=== PATIENT | male | born 1965 | race Caucasian/White ===

== ENCOUNTER 2021-12-12 07:11 | Day surgery (SDC) | payer BC ==
[2021-12-07 09:56] VITALS: BMI 30.1
[2021-12-12] MEDS ORDERED: CEFAZOLIN 2 GM in DEXTROSE 5%-WATER - 50 ML IVPB ONE (07:35)
[2021-12-12] MEDS ORDERED: CELECOXIB 200 MG CAPSULE PO ONE (07:35)
[2021-12-12] MEDS ORDERED: TRANEXAMIC ACID 1000 MG/10 ML VIAL IVPUSH ONE (07:35)
[2021-12-12] MEDS ORDERED: VANCOMYCIN 1,000 MG VIAL (RESTRICTED TO ID ONLY) ONE (08:06)
[2021-12-12] MEDS ORDERED: ceFAZolin SODIUM 1 GM VIAL ONE ×4 (08:07→23:57)
[2021-12-12] MEDS ORDERED: PROPOFOL 20 ML ONE ×3 (08:10)
[2021-12-12] MEDS ORDERED: BUPIVACAINE HCL 50 ML ONE (08:16)
[2021-12-12] MEDS ORDERED: MIDAZOLAM HCL 2 MG/2 ML SINGLE DOSE VIAL ONE ×3 (08:50→09:41)
[2021-12-12] MEDS ORDERED: BUPIVACAINE HCL/PF 0.5% (5 MG/ML) 30 ML VIAL IJ ONE (08:50)
[2021-12-12] MEDS ORDERED: ONDANSETRON 4 MG/2 ML VIAL IVPUSH PRN ×2 (09:43→11:17)
[2021-12-12] MEDS ORDERED: MAG HYDROX/AL HYDROX/SIMETH 30 ML UNIT-DOSE CUP PO PRN (09:43)
[2021-12-12] MEDS ORDERED: LACTATED RINGERS SOLUTION 1,000 ML IV SCH (09:45)
[2021-12-12] MEDS ORDERED: TRANEXAMIC ACID 1000 MG/10 ML VIAL ONE (10:46)
[2021-12-12] MEDS ORDERED: DEXAMETHASONE SOD PHOSPHATE 4 MG/1 ML VIAL ONE (10:46)
[2021-12-12] MEDS ORDERED: KETOROLAC TROMETHAMINE 30 MG/1 ML VIAL ONE (10:46)
[2021-12-12] MEDS ORDERED: PHENYLEPHRINE HCL 10 MG/1 ML SINGLE DOSE VIAL ONE (10:46)
[2021-12-12] MEDS ORDERED: oxyCODONE HCL 5 MG TABLET PO PRN (11:17)
[2021-12-12] MEDS ORDERED: ACETAMINOPHEN 1000 MG/100 ML BAG IVPB ONE (11:17)
[2021-12-12] MEDS ORDERED: BSS (NA/CA/MG/K) BALANCED SALT SOLUTION OPHTH SOLN 15 ML BOTTLE ONE (12:03)
[2021-12-12] MEDS: LISINOPRIL 20 MG TABLET PO SCH ×2 (12:56→22:01)
[2021-12-12] MEDS: MULTIVITAMINS (DAILY MVI) TABLET (FP) PO SCH (12:56)
[2021-12-12] MEDS: PANTOPRAZOLE 40 MG TABLET PO SCH (12:56)
[2021-12-12] MEDS: SENNOSIDES/DOCUSATE COMBO (SENNA PLUS) TABLET (UD) PO SCH ×2 (12:56→22:01)
[2021-12-12] MEDS: amLODIPine BESYLATE 5 MG TABLET (FP) PO SCH (12:56)
[2021-12-12] MEDS: KETOROLAC TROMETHAMINE 30 MG/1 ML VIAL IVPUSH SCH (12:57)
[2021-12-12] MEDS: LACTATED RINGERS SOLUTION 1,000 ML IV SCH (12:57)
[2021-12-12] MEDS ORDERED: DEXTROSE 5%-WATER - 50 ML IVPB ONE ×2 (18:32→23:57)
[2021-12-12] MEDS: CEFAZOLIN 2 GM in DEXTROSE 5%-WATER - 50 ML IVPB SCH (18:37)
[2021-12-12] MEDS: metFORMIN HCL 500 MG TABLET (FP) PO SCH (18:38)
[2021-12-12] MEDS: INSULIN SLIDING SCALE (NOVOLOG) 1 VIAL SQ SCH (22:02)
[2021-12-12] MEDS: ATORVASTATIN CA 10 MG TABLET (FP) PO SCH (22:02)
[2021-12-12] MEDS: oxyCODONE HCL 10 MG SUSTAINED ACTING TABLET PO SCH (22:06)
[2021-12-13] MEDS: CEFAZOLIN 2 GM in DEXTROSE 5%-WATER - 50 ML IVPB SCH (01:34)
[2021-12-13] MEDS: oxyCODONE HCL 5 MG TABLET PO PRN ×2 (04:54→19:49)
[2021-12-13] MEDS: metFORMIN HCL 500 MG TABLET (FP) PO SCH ×2 (07:28→18:57)
[2021-12-13] MEDS: INSULIN SLIDING SCALE (NOVOLOG) 1 VIAL SQ SCH ×4 (07:28→21:32)
[2021-12-13] MEDS: KETOROLAC TROMETHAMINE 30 MG/1 ML VIAL IVPUSH SCH (08:16)
[2021-12-13 08:31] LABS: HEMATOCRIT 36.3 % (35.4-49); HEMOGLOBIN 12.6 GM/dL (11.7-16.9); MCH 27.6 pg (25.7-33.7); MCHC 34.7 g/dl (32.0-35.9); MEAN CELL VOLUME 79.5 fl (80-96); MEAN PLT VOLUME 9.3 fl (7.5-11.1); PLATELET COUNT 173 10^3/uL (134-434); RBC 4.56 M/mm3 (4.00-5.60); RDW 13.6 % (11.9-15.9); WHITE BLOOD COUNT 9.6 K/mm3 (4.0-10.0)
[2021-12-13] MEDS: ASPIRIN 325 MG TABLET PO SCH (11:34)
[2021-12-13] MEDS: amLODIPine BESYLATE 5 MG TABLET (FP) PO SCH (11:34)
[2021-12-13] MEDS: oxyCODONE HCL 10 MG SUSTAINED ACTING TABLET PO SCH ×2 (11:34→21:31)
[2021-12-13] MEDS: LISINOPRIL 20 MG TABLET PO SCH ×2 (11:34→21:32)
[2021-12-13] MEDS: MULTIVITAMINS (DAILY MVI) TABLET (FP) PO SCH (11:35)
[2021-12-13] MEDS: PANTOPRAZOLE 40 MG TABLET PO SCH (11:35)
[2021-12-13] MEDS: SENNOSIDES/DOCUSATE COMBO (SENNA PLUS) TABLET (UD) PO SCH ×3 (11:35→22:00)
[2021-12-13] MEDS: ATORVASTATIN CA 10 MG TABLET (FP) PO SCH (21:32)
[2021-12-14] MEDS: oxyCODONE HCL 5 MG TABLET PO PRN ×2 (02:55→08:21)
[2021-12-14] MEDS: INSULIN SLIDING SCALE (NOVOLOG) 1 VIAL SQ SCH ×2 (07:10→11:21)
[2021-12-14] MEDS: metFORMIN HCL 500 MG TABLET (FP) PO SCH (07:10)
[2021-12-14] MEDS: LACTATED RINGERS SOLUTION 1,000 ML IV SCH ×2 (07:39→11:28)
[2021-12-14] MEDS: ASPIRIN 325 MG TABLET PO SCH (08:09)
[2021-12-14 09:06] VITALS: BP 140/70; PULSE 84; TEMP 98.6
[2021-12-14] MEDS: SENNOSIDES/DOCUSATE COMBO (SENNA PLUS) TABLET (UD) PO SCH (09:10)
[2021-12-14] MEDS: PANTOPRAZOLE 40 MG TABLET PO SCH (09:10)
[2021-12-14] MEDS: MULTIVITAMINS (DAILY MVI) TABLET (FP) PO SCH (09:10)
[2021-12-14] MEDS: LISINOPRIL 20 MG TABLET PO SCH (09:10)
[2021-12-14] MEDS: amLODIPine BESYLATE 5 MG TABLET (FP) PO SCH (09:11)
[2021-12-14] MEDS: oxyCODONE HCL 10 MG SUSTAINED ACTING TABLET PO SCH (09:11)
[2021-12-14 09:29] LABS: HEMATOCRIT 35.2 % (35.4-49); HEMOGLOBIN 12.4 GM/dL (11.7-16.9); MCH 28.1 pg (25.7-33.7); MCHC 35.3 g/dl (32.0-35.9); MEAN CELL VOLUME 79.6 fl (80-96); MEAN PLT VOLUME 9.3 fl (7.5-11.1); PLATELET COUNT 170 10^3/uL (134-434); RBC 4.42 M/mm3 (4.00-5.60); RDW 13.4 % (11.9-15.9); WHITE BLOOD COUNT 9.7 K/mm3 (4.0-10.0)
== END 2021-12-14 14:16 | disposition home health service (06) ==
LOC: FASU 07:11 → FM/S 12:17 → FASU 12-14 14:16
PROVIDERS: ATTEND Orthopaedic Surgery
PROC: 8E0YXBZ Computer Assisted Procedure of Lower Extremity (ICD-10-PCS; 2021-12-12)
PROC: 8E0W0CZ Robotic Assisted Procedure of Trunk Region, Open Approach (ICD-10-PCS; 2021-12-12)
PROC: 0SRB0J9 Replacement of Left Hip Joint with Synthetic Substitute, Cemented, Open Approach (ICD-10-PCS; principal; 2021-12-12 09:53)
DX: E11.9 Type 2 diabetes mellitus without complications (principal); E66.09 Other obesity due to excess calories; F17.210 Nicotine dependence, cigarettes, uncomplicated; Z68.30 Body mass index [BMI] 30.0-30.9, adult; Z79.84 Long term (current) use of oral hypoglycemic drugs
CPT/HCPCS: 20985; 27130; C1776; S2900; 36415; 73502-TC-LT-FY; 82962; 85027; 88305-TC; 88311-TC; 94760; 97010-GP; 97116-GP; 97163-GP